=== PATIENT | female | born 1945 | race African-American/Black ===

== ENCOUNTER 2019-03-09 10:31 | Emergency (ER) | payer MEDICARE, OTHER ==
[~2019-03-09 10:31] MED LIST: AMLO10TA80 PO; ATOR40TA70 PO; CLOP75TA33 PO; HYDR25TA PO; LOSA50TA41 PO; NPH,100V SQ
[2019-03-09] MEDS ORDERED: METHYLPREDNISOLONE SOD SUCC 125 MG/2 ML VIAL IV STA (10:55)
[2019-03-09] MEDS ORDERED: IPRATROPIUM BROMIDE (0.02%) 0.5MG/2.5ML NEB HHN STA (10:55)
[2019-03-09] MEDS ORDERED: ALBUTEROL (0.083%) 2.5MG/3ML NEB HHN STA (10:55)
[2019-03-09] MEDS ORDERED: MAGNESIUM 2 G PREMIX 50 ML IV ONE (11:00)
[2019-03-09 11:24] LABS: BASOPHILS % 0.6 % (0.0-2.0); EOSINOPHILS % 9.9 % (0.0-5.0); HEMATOCRIT. 38.9 % (36.0-48.0); LYMPHOCYTES % 33.1 % (20.0-50.0); MEAN CORPUSCULAR HEMOGLOBIN 29.8 pg (28.0-32.0); MEAN CORPUSCULAR VOLUME 89.2 fL (81.0-99.0); MEAN PLATELET VOLUME 8.5 fl (7.4-10.4); MONOCYTES % 7.4 % (2.0-8.0); PLATELET 297 x1000/uL (130-400); RED BLOOD CELL COUNT 4.36 mill/uL (4.2-5.4); RED CELL DISTRIBUTION WIDTH 14.3 % (11.6-14.6)
[2019-03-09 11:29] LABS: CHLORIDE 98 mEq/L (98-107)
[2019-03-09 14:06] VITALS: BP 134/64
== END 2019-03-09 14:50 | disposition short-term general hospital (02) ==
LOC: ER 10:31
DX: J44.1 Chronic obstructive pulmonary disease with (acute) exacerbation (principal); I24.8 Other forms of acute ischemic heart disease; E87.6 Hypokalemia; E87.1 Hypo-osmolality and hyponatremia; E11.65 Type 2 diabetes mellitus with hyperglycemia; E78.00 Pure hypercholesterolemia, unspecified; I10 Essential (primary) hypertension; R79.89 Other specified abnormal findings of blood chemistry; Z88.6 Allergy status to analgesic agent; Z90.710 Acquired absence of both cervix and uterus; Z88.0 Allergy status to penicillin; Z88.5 Allergy status to narcotic agent; Z79.899 Other long term (current) drug therapy
CPT/HCPCS: 36415; 71045; 80053; 82962; 83880; 84484; 85025; 93005; 94640; 96365; 96375; 99285; J2930; J3475; J7611

== ENCOUNTER 2022-03-23 06:59 | Inpatient (IN) | payer MEDICARE, OTHER ==
[~2022-03-23] VITALS: Ht 152.4 cm; Wt 89.8 kg
[~2022-03-23 06:59] MED LIST changes: +LEVO25TA7 PO; +METR-167 PO
[2022-03-23] MEDS ORDERED: ALBUTEROL (0.083%) 2.5MG/3ML NEB HHN STA ×2 (07:10→16:33)
[2022-03-23] MEDS ORDERED: PREDNISONE 20MG TABLET PO STA (07:10)
[2022-03-23] MEDS ORDERED: IPRATROPIUM BROMIDE (0.02%) 0.5MG/2.5ML NEB HHN STA ×2 (07:10→16:33)
[2022-03-23] MEDS ORDERED: MAGNESIUM 2 G PREMIX 50 ML IV ONE (07:15)
[2022-03-23] MEDS ORDERED: METHYLPREDNISOLONE SOD SUCC 125 MG/2 ML VIAL IV ONE (07:15)
[2022-03-23] MEDS ORDERED: P20 MT (11:17)
[2022-03-23] MEDS ORDERED: AZIT250T12 MT (11:19)
[2022-03-23 15:44] LABS: HEMATOCRIT. 34.7 % (36.0-48.0); HEMOGLOBIN. 11.5 g/dL (12.0-16.0); MEAN CORPUSCULAR HEMOGLOBIN 28.4 pg (28.0-32.0); MEAN CORPUSCULAR VOLUME 85.4 fL (81.0-99.0); MEAN PLATELET VOLUME 7.8 fl (7.4-10.4); PLATELET 516 x1000/uL (130-400); RED BLOOD CELL COUNT 4.07 mill/uL (4.2-5.4); RED CELL DISTRIBUTION WIDTH 16.7 % (11.6-14.6)
[2022-03-23 15:51] LABS: CHLORIDE 94 mEq/L (98-107)
[2022-03-23] MEDS ORDERED: HYDRALAZINE 20MG/ML VIAL IV NR (20:00)
[2022-03-23] MEDS ORDERED: GUAIFENESIN 200MG/10ML SUGAR FREE UDC PO PRN (20:15)
[2022-03-23] MEDS ORDERED: IPRATROPIUM/ALBUTEROL 0.5-3(2.5)MG/3ML NEB HHN PRN (20:15)
[2022-03-23] MEDS ORDERED: ACETAMINOPHEN 325MG TABLET PO PRN ×2 (20:15)
[2022-03-23] MEDS ORDERED: ACETAMINOPHEN 650MG SUPP PR PRN ×2 (20:15)
[2022-03-23] MEDS ORDERED: MAGNESIUM/ALUMINUM HYDROXIDE/SIMETHICONE 30ML UDC PO PRN (20:15)
[2022-03-23] MEDS ORDERED: CLONIDINE 0.1MG TABLET PO PRN (20:15)
[2022-03-23] MEDS ORDERED: ONDANSETRON HCL 4MG/2ML INJ IV PRN (20:15)
[2022-03-23] MEDS ORDERED: LORAZEPAM 0.5MG TABLET PO PRN (20:15)
[2022-03-23 20:43] LABS: PLATELET ESTIMATE INCREASED
[2022-03-23] MEDS: ENOXAPARIN 40MG/0.4ML SYR SUBCUT SCH (21:22)
[2022-03-23] MEDS: AMLODIPINE 10MG TABLET PO SCH (21:22)
[2022-03-24] VITALS (7 sets, daily range): BP systolic 123–174; BP diastolic 63–79
[2022-03-24] MEDS ORDERED: HYDRALAZINE 20MG/ML VIAL IV PRN
[2022-03-24] MEDS ORDERED: HYDROCODONE/ACETAMINOPHEN 5/325MG TABLET PO PRN
[2022-03-24] MEDS ORDERED: MORPHINE SULFATE 2 MG/ML CPJ (NOT FOR IM USE) IV PRN
[2022-03-24] MEDS ORDERED: FERR325T6 MT (01:42)
[2022-03-24] MEDS ORDERED: MONT-39 MT (01:42)
[2022-03-24] MEDS ORDERED: ASCO-339 MT (01:42)
[2022-03-24] MEDS ORDERED: DEXTROSE 50% WATER 50ML SYRINGE IV PRN (01:45)
[2022-03-24] MEDS: INSULIN LISPRO 100 UNITS/ML SUBCUT SCH ×5 (01:47→21:25)
[2022-03-24] MEDS: BLOOD SUGAR DIAGNOSTIC STRIP TEST SCH ×5 (01:47→21:00)
[2022-03-24 08:04] LABS: BASOPHILS % 0.2 % (0.0-2.0); EOSINOPHILS % 0.1 % (0.0-5.0); HEMATOCRIT. 34.8 % (36.0-48.0); HEMOGLOBIN. 11.6 g/dL (12.0-16.0); LYMPHOCYTES % 9.2 % (20.0-50.0); MEAN CORPUSCULAR HEMOGLOBIN 28.1 pg (28.0-32.0); MEAN CORPUSCULAR VOLUME 84.3 fL (81.0-99.0); MEAN PLATELET VOLUME 7.8 fl (7.4-10.4); MONOCYTES % 5.4 % (2.0-8.0); NEUTROPHILS % 85.1 % (40.0-76.0); PLATELET 511 x1000/uL (130-400); RED BLOOD CELL COUNT 4.13 mill/uL (4.2-5.4); RED CELL DISTRIBUTION WIDTH 16.2 % (11.6-14.6)
[2022-03-24 08:28] LABS: CHLORIDE 94 mEq/L (98-107)
[2022-03-24] MEDS: INSULIN GLARGINE 100 UNITS/ML SUBCUT SCH ×2 (08:28→21:24)
[2022-03-24 08:45] LABS: CREATINE KINASE 100 IU/L (26-192); HDL CHOLESTEROL 59 mg/dL (40-59); LDL CHOLESTEROL 68 mg/dL (5-100)
[2022-03-24] MEDS: CLOPIDOGREL 75MG TABLET PO SCH (09:00)
[2022-03-24] MEDS: ASCORBIC ACID 500 MG TABLET PO SCH (09:00)
[2022-03-24] MEDS: HYDROCHLOROTHIAZIDE 25MG TABLET PO SCH (09:00)
[2022-03-24] MEDS ORDERED: MEDICATION NOT ON FORMULARY EA (Ferrous Sulfate 1 TAB) MT SCH (09:00)
[2022-03-24] MEDS: ATORVASTATIN CALCIUM 40MG TABLET PO SCH (09:00)
[2022-03-24] MEDS: LOSARTAN POTASSIUM 50 MG TABLET PO SCH (09:00)
[2022-03-24] MEDS: AMLODIPINE 10MG TABLET PO SCH (09:00)
[2022-03-24] MEDS ORDERED: MEDICATION NOT ON FORMULARY EA (Ascorbate Calcium (Vitamin C) 1 TAB) MT SCH (09:00)
[2022-03-24] MEDS: MONTELUKAST SODIUM 10MG TABLET PO SCH (09:00)
[2022-03-24] MEDS: LEVOTHYROXINE SODIUM 25MCG TABLET PO SCH (09:00)
[2022-03-24] MEDS: FERROUS SULFATE 325MG TABLET PO SCH (09:00)
[2022-03-24] MEDS: DOCUSATE SODIUM 100MG CAPSULE PO PRN (10:49)
[2022-03-24] MEDS: METRONIDAZOLE 500 MG PREMIX 100 ML IV SCH ×2 (15:00→21:26)
[2022-03-24] MEDS ORDERED: VANCOMYCIN 2,000 MG in DEXT 5% WATER 500 ML IV SCH (15:00)
[2022-03-24] MEDS: CEFEPIME 1,000 MG in DEXTROSE 5% WATER 50 ML IV SCH ×2 (16:00→23:35)
[2022-03-24] MEDS ORDERED: AMLODIPINE 2.5MG TABLET PO SCH (21:00)
[2022-03-24] MEDS: ENOXAPARIN 40MG/0.4ML SYR SUBCUT SCH (21:24)
[2022-03-25] VITALS: BP_SYST 134; BP_SYST 139; BP_DIAS 58
[2022-03-25 04:00] VITALS: BP 115/55
[2022-03-25] MEDS: VANCOMYCIN 750MG PMX (XELLIA) 150 ML IV SCH (04:55)
[2022-03-25] MEDS: METRONIDAZOLE 500 MG PREMIX 100 ML IV SCH (05:55)
[2022-03-25] MEDS: BLOOD SUGAR DIAGNOSTIC STRIP TEST SCH ×4 (07:52→21:57)
[2022-03-25 08:00] VITALS: BP 147/72
[2022-03-25 09:05] LABS: BASOPHILS % 0.5 % (0.0-2.0); EOSINOPHILS % 8.8 % (0.0-5.0); HEMATOCRIT. 31.8 % (36.0-48.0); HEMOGLOBIN. 10.5 g/dL (12.0-16.0); LYMPHOCYTES % 17.5 % (20.0-50.0); MEAN CORPUSCULAR HEMOGLOBIN 27.8 pg (28.0-32.0); MEAN CORPUSCULAR VOLUME 84.5 fL (81.0-99.0); MONOCYTES % 7.4 % (2.0-8.0); NEUTROPHILS % 65.8 % (40.0-76.0); PLATELET 440 x1000/uL (130-400); RED BLOOD CELL COUNT 3.76 mill/uL (4.2-5.4); RED CELL DISTRIBUTION WIDTH 16.2 % (11.6-14.6)
[2022-03-25 09:13] LABS: CHLORIDE 98 mEq/L (98-107)
[2022-03-25] MEDS: LEVOTHYROXINE SODIUM 25MCG TABLET PO SCH (09:35)
[2022-03-25] MEDS: MONTELUKAST SODIUM 10MG TABLET PO SCH (09:35)
[2022-03-25] MEDS: ASCORBIC ACID 500 MG TABLET PO SCH (09:35)
[2022-03-25] MEDS: LOSARTAN POTASSIUM 50 MG TABLET PO SCH (09:36)
[2022-03-25] MEDS: ATORVASTATIN CALCIUM 40MG TABLET PO SCH (09:36)
[2022-03-25] MEDS: FERROUS SULFATE 325MG TABLET PO SCH (09:36)
[2022-03-25] MEDS: AMLODIPINE 10MG TABLET PO SCH (09:36)
[2022-03-25] MEDS: CLOPIDOGREL 75MG TABLET PO SCH (09:36)
[2022-03-25] MEDS: HYDROCHLOROTHIAZIDE 25MG TABLET PO SCH (09:37)
[2022-03-25] MEDS: INSULIN LISPRO 100 UNITS/ML SUBCUT SCH ×4 (09:38→21:56)
[2022-03-25] MEDS: INSULIN GLARGINE 100 UNITS/ML SUBCUT SCH ×2 (09:39→21:57)
[2022-03-25] MEDS: CEFEPIME 1,000 MG in DEXTROSE 5% WATER 50 ML IV SCH ×2 (09:40→21:00)
[2022-03-25] MEDS ORDERED: POTASSIUM CHLORIDE 20MEQ TABLET SR PO NR (10:15)
[2022-03-25 12:00] VITALS: BP 127/61
[2022-03-25] MEDS: LORATADINE 10MG TABLET PO SCH (14:11)
[2022-03-25] MEDS: METRONIDAZOLE 500MG TABLET PO SCH ×2 (14:14→21:57)
[2022-03-25 16:00] VITALS: BP 111/54
[2022-03-25] MEDS: DOCUSATE SODIUM 100MG CAPSULE PO PRN (16:40)
[2022-03-25] MEDS: PREDNISONE 20MG TABLET PO SCH (18:17)
[2022-03-25] MEDS ORDERED: P20 MT (18:33)
[2022-03-25 20:00] VITALS: BP 112/57
[2022-03-25] MEDS: IPRATROPIUM/ALBUTEROL 0.5-3(2.5)MG/3ML NEB HHN SCH (20:59)
[2022-03-25] MEDS: ENOXAPARIN 40MG/0.4ML SYR SUBCUT SCH (21:58)
[2022-03-26] VITALS: BP 139/64
[2022-03-26] MEDS: VANCOMYCIN 750MG PMX (XELLIA) 150 ML IV SCH
[2022-03-26] MEDS: IPRATROPIUM/ALBUTEROL 0.5-3(2.5)MG/3ML NEB HHN SCH ×3 (02:35→13:54)
[2022-03-26 04:00] VITALS: BP 157/78
[2022-03-26] MEDS: BLOOD SUGAR DIAGNOSTIC STRIP TEST SCH ×2 (05:58→12:19)
[2022-03-26] MEDS: METRONIDAZOLE 500MG TABLET PO SCH ×2 (06:23→15:10)
[2022-03-26] MEDS ORDERED: LEVOTHYROXINE SODIUM 25MCG TABLET PO SCH (07:40)
[2022-03-26 07:48] LABS: CHLORIDE 101 mEq/L (98-107)
[2022-03-26 08:00] VITALS: BP 100/45
[2022-03-26] MEDS: PREDNISONE 20MG TABLET PO SCH (08:16)
[2022-03-26] MEDS: INSULIN LISPRO 100 UNITS/ML SUBCUT SCH ×2 (08:19→12:31)
[2022-03-26] MEDS: CEFEPIME 1,000 MG in DEXTROSE 5% WATER 50 ML IV SCH (09:00)
[2022-03-26] MEDS: HYDROCHLOROTHIAZIDE 25MG TABLET PO SCH (09:00)
[2022-03-26] MEDS: AMLODIPINE 10MG TABLET PO SCH (09:00)
[2022-03-26] MEDS: CLOPIDOGREL 75MG TABLET PO SCH (10:41)
[2022-03-26] MEDS: LOSARTAN POTASSIUM 50 MG TABLET PO SCH (10:41)
[2022-03-26] MEDS: INSULIN GLARGINE 100 UNITS/ML SUBCUT SCH (10:41)
[2022-03-26] MEDS: ATORVASTATIN CALCIUM 40MG TABLET PO SCH (10:42)
[2022-03-26] MEDS: MONTELUKAST SODIUM 10MG TABLET PO SCH (10:42)
[2022-03-26] MEDS: FERROUS SULFATE 325MG TABLET PO SCH (10:42)
[2022-03-26] MEDS: ASCORBIC ACID 500 MG TABLET PO SCH (10:42)
[2022-03-26] MEDS: LORATADINE 10MG TABLET PO SCH (10:43)
[2022-03-26 12:00] VITALS: BP 139/56
[2022-03-26] MEDS ORDERED: VANCOMYCIN 750MG PMX (XELLIA) 150 ML IV SCH (12:00)
[2022-03-26 16:00] VITALS: BP 138/58
[2022-03-26 17:09] VITALS: BP 138/58
[2022-03-26] MEDS ORDERED: ALBU6.7H9 INH (17:53)
== END 2022-03-26 20:15 | disposition home health service (06) | DRG 189 ==
LOC: ER 06:59 → EDBEDREQ 18:48 → ENRESERV 20:48 → 7WST 23:28
PROVIDERS: ADMIT Family Medicine Adult Medicine; ATTEND Family Medicine Adult Medicine
DX: J96.00 Acute respiratory failure, unspecified whether with hypoxia or hypercapnia (principal); J45.901 Unspecified asthma with (acute) exacerbation; E87.1 Hypo-osmolality and hyponatremia; G82.20 Paraplegia, unspecified; E44.1 Mild protein-calorie malnutrition; E03.9 Hypothyroidism, unspecified; E78.00 Pure hypercholesterolemia, unspecified; L89.90 Pressure ulcer of unspecified site, unspecified stage; I69.30 Unspecified sequelae of cerebral infarction; E11.65 Type 2 diabetes mellitus with hyperglycemia; I10 Essential (primary) hypertension; E87.6 Hypokalemia; E78.5 Hyperlipidemia, unspecified; Z20.822 Contact with and (suspected) exposure to COVID-19; I25.2 Old myocardial infarction; Z88.0 Allergy status to penicillin; Z88.8 Allergy status to other drugs, medicaments and biological substances; I69.398 Other sequelae of cerebral infarction; Z90.710 Acquired absence of both cervix and uterus; Z79.899 Other long term (current) drug therapy; Z79.4 Long term (current) use of insulin; Z79.82 Long term (current) use of aspirin; Z79.02 Long term (current) use of antithrombotics/antiplatelets
CPT/HCPCS: 36415; 71045; 80048; 80053; 80061; 80202; 82550; 82962; 83036; 83880; 84145; 84443; 84484; 85025; 87426; 93306; 97162; 99285; C9803; J0360; J0692; J1650; J1815; J2930; J3370; J3475; J3490; J7060; J7512; A4315

== ENCOUNTER 2023-02-05 06:30 | Emergency (ER) | payer MEDICARE, OTHER ==
[~2023-02-05] VITALS: Ht 170.2 cm; Wt 127.0 kg
[~2023-02-05 06:30] MED LIST changes: +ALBU6.7H3 INH; +ASCO-339 MT; +FERR325T6 MT; -METR-167 PO; +MONT-39 MT; +P20 MT
[2023-02-05] MEDS ORDERED: IPRATROPIUM BROMIDE (0.02%) 0.5MG/2.5ML NEB HHN STA ×2 (06:41→11:37)
[2023-02-05] MEDS ORDERED: ALBUTEROL (0.083%) 2.5MG/3ML NEB HHN STA ×2 (06:41→11:37)
[2023-02-05] MEDS ORDERED: METHYLPREDNISOLONE SOD SUCC 125MG/2ML (ACT-O-VIAL) IV STA (06:41)
[2023-02-05] MEDS ORDERED: METHYLPREDNISOLONE SOD SUCC 40MG VIAL IV SCH (06:50)
[2023-02-05 06:51] VITALS: PULSE 97; RESP 18; O2SAT 96
[2023-02-05] MEDS ORDERED: METHYLPREDNISOLONE SOD SUCC 40MG/ML (ACT-O-VIAL) IV NR (07:30)
[2023-02-05 08:11] LABS: CLARITY URINE CLEAR (CLEAR); COLOR URINE YELLOW (YELLOW); GLUCOSE URINE NEGATIVE (NEGATIVE); KETONES URINE NEGATIVE (NEGATIVE); LEUKOCYTE ESTERASE URINE 1+ (NEGATIVE); NITRITE URINE NEGATIVE (NEGATIVE); OCCULT BLOOD URINE 1+ (NEGATIVE); PROTEIN URINE 3+ (NEGATIVE); SPECIFIC GRAVITY URINE 1.012 (1.005-1.030); UROBILINOGEN URINE 0.2 E.U./dL (0.2-1.0)
[2023-02-05 08:11] LABS: CHLORIDE 107 mEq/L (98-107); INDEX HEMOLYSI 1 (1-3); INDEX ICTERIC 1 (1-4); INDEX LIPEMIC 1 (1-3); POTASSIUM 3.2 mEq/L (3.5-5.1); SODIUM 139 mEq/L (136-145)
[2023-02-05 08:13] LABS: BASOPHILS % 0.4 % (0.0-2.0); EOSINOPHILS % 11.3 % (0.0-5.0); HEMATOCRIT. 33.6 % (36.0-48.0); HEMOGLOBIN. 10.9 g/dL (12.0-16.0); LYMPHOCYTES % 29.6 % (20.0-50.0); MEAN CORPUSCULAR HEMOGLOBIN 27.8 pg (28.0-32.0); MEAN CORPUSCULAR HGB CONC 32.4 g/dL (31.0-37.0); MEAN CORPUSCULAR VOLUME 85.7 fL (81.0-99.0); MEAN PLATELET VOLUME 7.6 fl (7.4-10.4); MONOCYTES % 6.5 % (2.0-8.0); NEUTROPHILS % 52.2 % (40.0-76.0); PLATELET 369 x1000/uL (130-400); RED BLOOD CELL COUNT 3.93 mill/uL (4.2-5.4); RED CELL DISTRIBUTION WIDTH 15.5 % (11.6-14.6); WHITE BLOOD COUNT 14.4 x1000/uL (4.5-11.0)
[2023-02-05 08:22] LABS: ALANINE AMINOTRANSFERASE 16 IU/L (13-61); ALBUMIN 2.6 g/dL (3.4-5.0); ASPARTATE AMINOTRANSFERASE 15 IU/L (15-37); BILIRUBIN TOTAL 0.5 mg/dL (0.1-1.0); CALCIUM 8.5 mg/dL (8.5-10.1); CARBON DIOXIDE 27 mEq/L (21-32); CREATININE 1.2 mg/dL (0.6-1.3); GLUCOSE 184 mg/dL (70-105); NT PRO B-TYPE NATRIURETIC PEP 656 pg/mL (5-125); PROTEIN TOTAL 7.4 g/dL (6.0-8.3); UREA NITROGEN BLOOD 18 mg/dL (7-21)
[2023-02-05 08:41] LABS: TROPONIN I HIGH SENSITIVITY 83 ng/L (<54)
[2023-02-05 08:51] LABS: BACTERIA URINE 4+; SQUAMOUS EPITHELIAL CELL URINE RARE /lpf (RARE/1+)
[2023-02-05 08:52] LABS: RBC URINE 0-2 /hpf (0-2); WBC URINE 0-2 /hpf (0-2)
[2023-02-05 11:23] LABS: TROPONIN I HIGH SENSITIVITY 83 ng/L (<54)
[2023-02-05 11:55] VITALS: PULSE 95; RESP 24; O2SAT 95
[2023-02-05 15:20] VITALS: BP 134/56; PULSE 103; RESP 19; TEMP 97.7
== END 2023-02-05 15:34 | disposition short-term general hospital (02) ==
LOC: ER 06:33
DX: J44.1 Chronic obstructive pulmonary disease with (acute) exacerbation (principal); E11.9 Type 2 diabetes mellitus without complications; I10 Essential (primary) hypertension; Z20.822 Contact with and (suspected) exposure to COVID-19; Z88.0 Allergy status to penicillin
CPT/HCPCS: 99291; 96374; 71045; 87426; 80053; 81003; 83880; 85025; 84484; 87804 ×2; 36415; 94640; 93005; J2920; C9803; J2930

== ENCOUNTER 2024-02-07 08:53 | Emergency (ER) | payer OTHER ==
[~2024-02-07] VITALS: Ht 157.5 cm; Wt 86.0 kg
[2024-02-07 08:56] VITALS: O2SAT 99
[2024-02-07 09:46] LABS: BASOPHILS % 0.1 % (0.0-2.0); EOSINOPHILS % 1.3 % (0.0-5.0); HEMATOCRIT. 36.3 % (36.0-48.0); HEMOGLOBIN. 11.9 g/dL (12.0-16.0); LYMPHOCYTES % 8.9 % (20.0-50.0); MEAN CORPUSCULAR HEMOGLOBIN 28.6 pg (28.0-32.0); MEAN CORPUSCULAR HGB CONC 32.9 g/dL (31.0-37.0); MEAN CORPUSCULAR VOLUME 87.1 fL (81.0-99.0); MEAN PLATELET VOLUME 8.3 fl (7.4-10.4); MONOCYTES % 4.4 % (2.0-8.0); NEUTROPHILS % 85.3 % (40.0-76.0); PLATELET 340 x1000/uL (130-400); RED BLOOD CELL COUNT 4.17 mill/uL (4.2-5.4); RED CELL DISTRIBUTION WIDTH 15.4 % (11.6-14.6); WHITE BLOOD COUNT 22.8 x1000/uL (4.5-11.0)
[2024-02-07 09:54] LABS: CHLORIDE 98 mEq/L (98-107); POTASSIUM 3.3 mEq/L (3.5-5.1); SODIUM 134 mEq/L (136-145)
[2024-02-07 09:55] LABS: CALCIUM 9.2 mg/dL (8.7-10.4); CARBON DIOXIDE 30 mEq/L (21-32)
[2024-02-07 10:00] LABS: CREATININE 1.8 mg/dL (0.6-1.0); GLUCOSE 110 mg/dL (70-105); UREA NITROGEN BLOOD 37 mg/dL (9-23)
[2024-02-07] MEDS: SODIUM CHLORIDE 0.9% 1,000 ML IV ONE ×2 (10:12→14:33)
[2024-02-07 11:05] LABS: CLARITY URINE TURBID (CLEAR); COLOR URINE YELLOW (YELLOW); GLUCOSE URINE NEGATIVE (NEGATIVE); KETONES URINE NEGATIVE (NEGATIVE); LEUKOCYTE ESTERASE URINE 2+ (NEGATIVE); NITRITE URINE NEGATIVE (NEGATIVE); OCCULT BLOOD URINE TRACE (NEGATIVE); PH URINE 8.5 (4.5-8.0); PROTEIN URINE 3+ (NEGATIVE); SPECIFIC GRAVITY URINE 1.013 (1.005-1.030); UROBILINOGEN URINE 0.2 E.U./dL (0.2-1.0)
[2024-02-07 11:09] LABS: TROPONIN I HIGH SENSITIVITY 61 ng/L (3.0-34)
[2024-02-07] MEDS ORDERED: CEFEPIME 1GM IN DEXT 5% 50ML IV ONE (11:15)
[2024-02-07 11:24] LABS: TRIPLE PHOSPHATE CRYSTAL URINE 2+ /lpf
[2024-02-07] MEDS: VANCOMYCIN 1G PREMIX 200 ML IV ONE (11:24)
[2024-02-07 11:25] LABS: BACTERIA URINE 4+; SQUAMOUS EPITHELIAL CELL URINE NONE SEEN /lpf (RARE/1+)
[2024-02-07 11:26] LABS: RBC URINE 0-2 /hpf (0-2)
[2024-02-07] MEDS: CEFEPIME 1GM/50ML 50 ML IV SCH (12:50)
[2024-02-07 16:01] LABS: TROPONIN I HIGH SENSITIVITY 64 ng/L (3.0-34)
[2024-02-07 19:52] VITALS: TEMP 37.89192
[2024-02-07 21:05] VITALS: BP 160/56; PULSE 88; RESP 16; O2SAT 97
== END 2024-02-07 21:29 ==
LOC: ER 09:02 → EDBEDREQ 19:15 → ER 21:29
DX: A41.9 Sepsis, unspecified organism (principal); E87.6 Hypokalemia; R79.89 Other specified abnormal findings of blood chemistry; N17.9 Acute kidney failure, unspecified; E11.9 Type 2 diabetes mellitus without complications; I10 Essential (primary) hypertension; Z79.899 Other long term (current) drug therapy; Z20.822 Contact with and (suspected) exposure to COVID-19
CPT/HCPCS: 80048; 81003; 83605; 83690; 85025; 87040; 84484; 87804 ×2; 36415; 84145; 71045; 93005; 96367; 96361; 96365; 99291; 87426; J0692; J3370; J7030; Z7610 ×2

== ENCOUNTER 2024-10-24 17:47 | Emergency (ER) | payer OTHER ==
[~2024-10-24] VITALS: Ht 165.1 cm; Wt 90.0 kg
[2024-10-24] MEDS ORDERED: IPRATROPIUM/ALBUTEROL 0.5-3(2.5)MG/3ML NEB HHN NR (18:15)
[2024-10-24] MEDS ORDERED: IPRATROPIUM/ALBUTEROL 0.5-3(2.5)MG/3ML NEB HHN ONE (18:15)
[2024-10-24 18:54] LABS: BASOPHILS % 0.4 % (0.0-2.0); EOSINOPHILS % 4.2 % (0.0-5.0); HEMATOCRIT. 32.2 % (36.0-48.0); HEMOGLOBIN. 10.8 g/dL (12.0-16.0); LYMPHOCYTES % 23.1 % (20.0-50.0); MEAN CORPUSCULAR HEMOGLOBIN 28.2 pg (28.0-32.0); MEAN CORPUSCULAR HGB CONC 33.6 g/dL (31.0-37.0); MEAN CORPUSCULAR VOLUME 83.7 fL (81.0-99.0); MEAN PLATELET VOLUME 7.8 fl (7.4-10.4); MONOCYTES % 8.8 % (2.0-8.0); NEUTROPHILS % 63.5 % (40.0-76.0); PLATELET 387 x1000/uL (130-400); RED BLOOD CELL COUNT 3.85 mill/uL (4.2-5.4); RED CELL DISTRIBUTION WIDTH 17.5 % (11.6-14.6); WHITE BLOOD COUNT 10.7 x1000/uL (4.5-11.0)
[2024-10-24 19:06] LABS: CHLORIDE 99 mEq/L (98-107); POTASSIUM 3.2 mEq/L (3.5-5.1); SODIUM 137 mEq/L (136-145)
[2024-10-24 19:07] LABS: CARBON DIOXIDE 27 mEq/L (21-32)
[2024-10-24 19:12] LABS: CREATININE 1.9 mg/dL (0.6-1.0); GLUCOSE 93 mg/dL (70-105); UREA NITROGEN BLOOD 33 mg/dL (9-23)
[2024-10-24 19:52] LABS: TROPONIN I HIGH SENSITIVITY 73 ng/L (3.0-34)
[2024-10-24] MEDS: POTASSIUM CHLORIDE 20MEQ/PACKET PO NR (20:08)
[2024-10-24 20:11] LABS: BG BASE EXCESS 0.8 mmol/L (-2.0-3.0); BG CARBOXYHEMOGLOBIN 0.3 % (0.5-1.5); BG DEOXYHEMOGLOBIN 0.8 % (0.0-5.0); BG FRACTION INSPIRED OXYGEN 21; BG HCO3 ACT 23.7 mmol/L (21.0-28.0); BG METHEMOGLOBIN 0.3 % (0.5-1.5); BG OXYGEN SATURATION 99.2 % (94.0-98.0); BG OXYHEMOGLOBIN 98.6 % (94.0-98.0); BG PH 7.487 (7.350-7.450); BG PO2 143.8 mmHg (83.0-108.0); BG SAMPLE SITE RIGHT RADIAL; BG TOTAL HEMOGLOBIN 11.5 g/dL (12.0-16.0); BG VENT MODE ROOM AIR
[2024-10-24 20:27] VITALS: PULSE 84; RESP 20; O2SAT 98
[2024-10-24] MEDS: ASPIRIN 325MG EC TABLET PO NR (21:14)
[2024-10-24] MEDS ORDERED: DEXAMETHASONE 4MG TABLET PO NR (21:37)
[2024-10-24 23:16] VITALS: BP 188/66; PULSE 82; RESP 16; TEMP 36.7; O2SAT 97
== END 2024-10-25 | disposition short-term general hospital (02) ==
LOC: ER 17:47
DX: I21.4 Non-ST elevation (NSTEMI) myocardial infarction (principal); J44.1 Chronic obstructive pulmonary disease with (acute) exacerbation; E11.9 Type 2 diabetes mellitus without complications; E78.00 Pure hypercholesterolemia, unspecified; I10 Essential (primary) hypertension; Z79.899 Other long term (current) drug therapy; Z86.73 Personal history of transient ischemic attack (TIA), and cerebral infarction without residual deficits; Z88.0 Allergy status to penicillin; Z88.1 Allergy status to other antibiotic agents; Z88.5 Allergy status to narcotic agent
CPT/HCPCS: 80048; 83880; 85025; 84484; 36415; 71045; 94640; 82805; 82375; 93005; 99291; 36600; Z7610 ×2; J8540